=== PATIENT | male | born 1945 | race Caucasian/White ===

== ENCOUNTER 2020-09-25 08:26 | Outpatient (CLI) | payer MEDICARE, SELFPAY ==
--- NOTE | ~2020-09-25 | DEXA_ITS ---
Bone Density Report Name: Devon Schaefer Age: 75 Sex: Male Ethnicity: White Date of : 1945 Indication: screening for osteoporosis; height loss; Referring Provider: Mary Jo Shepherd Study: Bone densitometry was performed. Exam Date: September 25, 2020 Accession number: [id number] Bone Density: Region BMD T-score Z-score Classification AP Spine(L1, L2) 1.113 0.5 1.6 Normal Femoral Neck (Left) 0.777 -1.1 0.2 Osteopenia Total Hip (Left) 0.870 -1.1 -0.2 Osteopenia Femoral Neck (Right) 0.758 -1.3 0.1 Osteopenia Total Hip (Right) 0.868 -1.1 -0.3 Osteopenia Femoral Neck Mean 0.767 -1.2 0.2 Osteopenia Total Hip Mean 0.869 -1.1 -0.2 Osteopenia World Health Organization criteria for BMD impression classify patients as: Normal (T-score at or above -1.0), Osteopenia (T-score between -1.0 and -2.5), or Osteoporosis (T-score at or below -2.5). 10-year Fracture Risk(1): Major Osteoporotic Fracture 5.7% Hip Fracture 1.4% Reported Risk Factors: [place] (), Neck BMD=0.758, BMI=33.5 (1) FRAX(R) Version 3.08. Fracture probability calculated for an untreated patient. Fracture probability may be lower if the patient has received treatment. Clinical Information Provided by Patient: Patient maximum height was 74 Drinks caffeinated beverages Impression: The patient has low bone mass, based on the Right Femoral Neck T-score. Discussion: BONE DENSITY IS LOW AT ONE OR MORE SKELETAL SITES. This patient's lowest T-score is low at one or more skeletal sites. It meets the World Health Organization's (WHO) criteria for ?low bone mass? (T-score between -1.0 and -2.5). The patient's 10-year risk of fracture as calculated by FRAX is less than the threshold where pharmacological therapy is recommended by the National Osteoporosis Foundation (NOF). However, all treatment decisions require clinical judgment and consideration of individual patient factors, including patient preferences, comorbidities, previous drug use, risk factors not captured in the FRAX model (e.g., frailty, falls, vitamin D deficiency, increased bone turnover, interval significant decline in bone density) and possible under or overestimation of fracture risk by FRAX. The patient should follow a healthful lifestyle (good nutrition with adequate calcium and vitamin D, and appropriate weight-bearing exercise). Follow-Up: Consider repeating this study in 2 to 3 years to reassess this patient's status, or sooner if there is some new clinical indication. Reported by: Dr. Ceferino Noel on 09/25/2020 9:24:00 AM. Reviewed, dictated and finalized at location [facility]
== END 2020-09-25 08:27 | disposition home or self-care (01) ==
PROVIDERS: PCP Family Medicine; Visit Provider Urology
DX: Z79.818 Long term (current) use of other agents affecting estrogen receptors and estrogen levels (principal)
CPT/HCPCS: 77080